=== PATIENT | female | born 2000 | race Caucasian/White ===

== ENCOUNTER 2020-11-24 21:52 | Emergency (ER) | payer MEDICAID, SELFPAY ==
[2020-11-24 21:55] VITALS: BP 133/80; PULSE 60; RESP 20; TEMP 36.3; O2SAT 99
[2020-11-24 22:27] LABS: Basophils Absolute Auto 0.1 K/mm3 (0.0-0.1); Basophils Percent Auto 0.4 % (0.2-1.2); Eosinophils Absolute Auto 0.1 K/mm3 (0-0.3); Eosinophils Percent Auto 0.5 % (0-4.4); Hematocrit 37.4 % (37.0-47.0); Hemoglobin 12.7 g/dL (12.0-15.0); Immature Granulocyte Absolute 0.07 K/mm3 (0.00-0.031); Immature Granulocyte Percent A 0.5 % (0-0.5); Lymphocytes Absolute Auto 2.07 K/mm3 (0.9-3.2); Lymphocytes Percent Auto 13.4 % (18.3-44.2); Mean Corpuscular Hemoglobin 32.5 pg (26-34); Mean Corpuscular Volume 95.7 fl (80-100); Mean Platelet Volume 9.8 fl (7.4-10.4); Monocytes Absolute Auto 0.8 K/mm3 (0.1-0.6); Monocytes Percent Auto 5.1 % (2.6-8.5); Neutrophils Absolute Auto 12.3 K/mm3 (1.3-6.7); Neutrophils Percent Auto 80.1 % (45.5-73.1); Platelet Count Result 254 k/mm3 (150-375); Red Blood Count 3.91 M/mm3 (4.2-5.4); Red Cell Distribution Width 11.8 % (11.5-14.5); White Blood Count 15.4 K/mm3 (4.5-10.0)
[2020-11-24] MEDS: KETOROLAC 30 MG/ML VIAL (*BKC) IV PUSH (22:42)
[2020-11-24] MEDS: SODIUM CHLORIDE 0.9% IV 1,000 ML 999 ML IV CONT (22:42)
[2020-11-24] MEDS: METOCLOPRAMIDE HCL INJ 10 MG/2 ML VIAL IV PUSH (22:43)
[2020-11-24] MEDS: diphenhydrAMINE HCl INJ 50 MG/ML VIAL 25 MG IV PUSH (22:45)
[2020-11-24 22:46] LABS: Add Urine Microscopic? YES; Appearance Urine Cloudy (Clear); Bacteria Urine Trace /hpf; Bilirubin Urine Negative (Negative); Blood Urine Negative (Negative); Color Urine Yellow (Yellow); Glucose Urine UA Negative (Negative); Ketones Urine Negative (Negative); Leukocyte Esterase Ur Negative LEU/UL (Negative); Mucus Urine Heavy /lpf; Nitrate Urine Negative (Negative); Protein Urine Negative (Negative); Specific Grav Ur 1.025 (1.001-1.035); Squamous Epithelial Cell Urine Many /hpf (Few); Urobilinogen Urine Negative mg/dL (<2.0)
[2020-11-24 22:52] LABS: Alanine Aminotransferase 13 U/L (4-35); Albumin Level 4.7 g/dL (3.5-5.1); Alkaline Phosphatase 64 U/L (38-126); Anion Gap 11 mmol/L (8-16); Aspartate Amino Transferase 27 U/L (14-36); Bilirubin,Total 0.4 mg/dL (0.2-1.3); Blood Urea Nitrogen 17 mg/dL (7-17); Calcium 9.5 mg/dL (8.4-10.2); Carbon Dioxide 26 mmol/L (22-30); Chloride 102 mmol/L (98-107); Estimated CRCL calculation 95 ml/min; Estimated Glomerular Filt Rate > 60; Glucose 122 mg/dL (65-110); Lipase 61 U/L (23-300); Potassium 3.5 mmol/L (3.4-5.0); Sodium 139 mmol/L (137-145)
[2020-11-24 23:20] VITALS: BP 106/62; PULSE 74; RESP 16; O2SAT 100
--- NOTE | 2020-11-24 23:37 | ED.GENADULT ---
HPI - General Adult General Chief complaint: Abdominal Pain Stated complaint: headache, vomiting, congestion Time Seen by Provider: 11/24/20 22:16 History of Present Illness HPI narrative: Patient is a 20-year-old female who presents ER with headache. Generalized headache over the last 2 to 3 days. Became more severe this evening is right-sided radiating to the back. Reports photophobia. Has family history of migraine but no personal history of migraine. No fevers or chills or sweats. Has had some mild sinus congestion. Patient reports emesis not associated with upper abdominal cramping. Has not tried any home medications. No known sick contacts. No loss of taste or smell. Related Data Allergies Allergy/AdvReac Type Severity Reaction Status Date / Time amoxicillin Allergy Rash Verified 11/24/20 22:11 Penicillins Allergy Rash Verified 11/24/20 22:11 Review of Systems Review of Systems: All systems reviewed & are unremarkable except as noted in HPI and below Constitutional: Constitutional: Denies chills, Denies fever(s) and Denies weakness Eyes: Eyes: Denies change in vision and Reports photophobia ENT: Denies dizziness, Reports nasal congestion and Denies sore throat Gastrointestinal: Gastrointestinal: Reports abdominal pain, Denies diarrhea, Reports nausea and Reports vomiting Neurologic: Denies dizziness, Reports headache(s), Denies focal weakness and Denies numbness PMFSH Past Medical History Medical History (Updated 11/24/20 @ 23:58 by Dwight Juarez MD) Healthy female adult Surgical History Surgical History (Updated 11/24/20 @ 23:58 by Dwight Juarez MD) No history of previous surgery Social History Social History (Updated 11/24/20 @ 23:58 by Dwight Juarez MD) Smoking status: Never smoker Exam Narrative: GENERAL: Well-appearing, well-nourished, and in no acute distress. HEAD: Normocephalic, atraumatic. EYES: PERRLA and EOMI. CHEST: Clear to auscultation. No respiratory distress. HEART: Regular rate and rhythm. Normal peripheral pulses. ABDOMEN: Soft, nontender, nondistended. EXTREMITIES: Normal range of motion. No edema. SKIN: Warm, dry, no rash. NEURO:Alert and oriented x3. PSYCH: Normal mood and affect. Course Course Emergency Course: Headache abdominal discomfort resolved with Toradol/Reglan/Benadryl/IV fluids. White count felt to be reactive to vomiting. No neurologic abnormality. Discharge home. Vital Signs Vital signs: Vital Signs Temperature 97.3 F L 11/24/20 21:55 Pulse Rate 60 11/24/20 21:55 Respiratory Rate 20 11/24/20 21:55 Blood Pressure 133/80 11/24/20 21:55 Pulse Oximetry 99 11/24/20 21:55 Temperature 97.3 F L 11/24/20 21:55 Pulse Rate 74 11/24/20 23:20 Respiratory Rate 16 11/24/20 23:20 Blood Pressure 106/62 11/24/20 23:20 Pulse Oximetry 100 11/24/20 23:20 Medical Decision Making Vital Signs Vital Signs: Vital Signs Temperature 97.3 F L 11/24/20 21:55 Pulse Rate 60 11/24/20 21:55 Respiratory Rate 20 11/24/20 21:55 Blood Pressure 133/80 11/24/20 21:55 Pulse Oximetry 99 11/24/20 21:55 Temperature 97.3 F L 11/24/20 21:55 Pulse Rate 74 11/24/20 23:20 Respiratory Rate 16 11/24/20 23:20 Blood Pressure 106/62 11/24/20 23:20 Pulse Oximetry 100 11/24/20 23:20 Lab Data Result diagrams: 11/24/20 22:16 11/24/20 22:16 Labs: Lab Results 11/24/20 11/24/20 11/24/20 Range/Units 21:59 22:16 22:16 WBC 15.4 H (4.5-10.0) K/mm3 RBC 3.91 L (4.2-5.4) M/mm3 Hgb 12.7 (12.0-15.0) g/dL Hct 37.4 (37.0-47.0) % MCV 95.7 (80-100) fl MCH 32.5 (26-34) pg MCHC 34.0 (32-36) g/dl RDW 11.8 (11.5-14.5) % Plt Count 254 (150-375) k/mm3 MPV 9.8 (7.4-10.4) fl Immature Gran % (Auto) 0.5 (0-0.5) % Neut % (Auto) 80.1 H (45.5-73.1) % Lymph % (Auto) 13.4 L (18.3-44.2) % Cassia % (Auto) 5.1 (2.6-8.5) % E
== END 2020-11-25 00:10 | disposition home or self-care (01) ==
PROVIDERS: Emergency Medicine; Emergency Provider Emergency Medicine
DX: R51.9 Headache, unspecified (principal)
CPT/HCPCS: 36415; 80053; 81001; 81025; 83690; 85025; 96361; 96374; 96375; 99284; J1200; J1885; J2765; J7030